=== PATIENT | female | born 1985 | race Caucasian/White ===

== ENCOUNTER 2023-04-07 11:52 | Emergency (ER) | payer MEDICAID | END 2023-04-08 12:47 | disposition home or self-care (01) | LOC: ED 11:52 | DX: G40.909 Epilepsy, unspecified, not intractable, without status epilepticus (principal); R63.0 Anorexia; F19.10 Other psychoactive substance abuse, uncomplicated; R44.0 Auditory hallucinations; M50.321 Other cervical disc degeneration at C4-C5 level; I50.9 Heart failure, unspecified; Z79.899 Other long term (current) drug therapy; Z20.822 Contact with and (suspected) exposure to COVID-19; Z68.21 Body mass index [BMI] 21.0-21.9, adult ==